=== PATIENT | female | born 1970 | race Asian ===

== ENCOUNTER 2024-07-14 06:21 | Inpatient (IN) | payer MEDICAID, OTHER ==
[~2024-07-14] VITALS: Ht 152.4 cm; Wt 45.5 kg
[2024-07-14] VITALS (7 sets, daily range): BP systolic 124–125; BP diastolic 74–85; PULSE 65–88; RESP 14–18; TEMP 97.5–98.3; O2SAT 95–100
[2024-07-14 08:16] LABS: Chloride 105 mmol/L (98-107); Sodium 140 mmol/L (136-145)
[2024-07-14 08:17] LABS: Anion Gap 8 (5-15); Calcium 9.7 mg/dL (8.7-10.4); Carbon Dioxide 27 mmol/L (20-31)
[2024-07-14 08:20] LABS: Potassium 3.3 mmol/L (3.5-5.1)
[2024-07-14 08:22] LABS: BUN/Creatinine Ratio 23.4 (10.0-20.0); Blood Urea Nitrogen 15 mg/dL (9-23); Glucose 98 mg/dL (74-106)
[2024-07-14 08:38] LABS: Basophils # (auto) 0.1 10 ^3/uL (0-0.2); Basophils % (auto) 0.8 % (0.0-2.0); Eosinophils # (auto) 0.2 10 ^3/uL (0-0.8); Eosinophils % (auto) 3.1 % (0.0-7.0); Hematocrit 35.1 % (36.0-46.0); Hemoglobin 11.5 g/dL (12.2-16.2); Lymphocytes # (auto) 1.1 10 ^3/uL (0.4-5.4); Lymphocytes % (auto) 16.4 % (10.0-50.0); Mean Corpuscular Hemoglobin 26.2 pg (28.0-32.0); Mean Corpuscular Hgb Conc. 32.7 g/dL (32.0-36.0); Mean Corpuscular Volume 80.2 fL (80.0-100.0); Monocytes # (auto) 0.4 10 ^3/uL (0-1.3); Monocytes % (auto) 6.4 % (0.0-12.0); Neutrophils # (auto) 5.1 10 ^3/uL (1.6-8.6); Neutrophils % (auto) 73.3 % (37.0-80.0); Platelet Count (auto) 555 10^3/uL (140-450); Red Blood Cells 4.37 10^6/uL (4.0-5.20); White Blood Cell 6.9 10^3/uL (4.4-10.8)
--- NOTE | 2024-07-14 09:16 | ED.PDOC ---
GI ASSESSMENT HPI Comments 53Y F presents to ED with chief complaint abd pain and rectal bleeding x1.5yrs. Pt states pain occurs after eating and she becomes distended. Pt describes stool as sticky, tacky, and containing sticks and seed-like substance inside. Per pt, she has a bowel movement 5-6x per hour and she is unable to urinate or produce flatulence unless she has defecated first. Pt states all her symptoms began after taking probiotics last year. No other symptoms/history reported. Pt has never had a colonoscopy procedure. Chief Complaint: Abdominal Pain Time Seen by MD: 08:50 Primary Care Provider: DENIES Reviewed Notes: Nurses Notes, Medications, Allergies Allergies: Coded Allergies: NO KNOWN ALLERGIES (Unverified , 02/04/20) Information Source: Patient Mode of Arrival: Ambulatory Timing: Months Duration: Intermittent Prehospital treatment: None Quality: Aching Vomitus: None Stool: Other Severity: Mild Recent: None Recent Hx of: None Pain Location: Diffuse Modifying Factors: Nothing Associated sign and symptoms: Abdominal Pain, Other Past Medical History PAST MEDICAL HISTORY: Denies Surgical History: Denies all surgeries 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 ASSISTANT Hx Family History Family History: Reviewed,noncontributory to illness Social History Smoker: Non-Smoker Alcohol: Denies ETOH Use Drugs: Denies Drug Use Lives In: Home Constitutional: denies: chills, diaphoresis, fatigue, fever, malaise, sweats, weakness, others EENTM: denies: blurred vision, double vision, ear bleeding, ear discharge, ear drainage, ear pain, ear ringing, eye pain, eye redness, hearing loss, mouth pain, mouth swelling, nasal discharge, nose bleeding, nose congestion, nose pain, photophobia, tearing, throat pain, throat swelling, voice changes, others Respiratory: denies: cough, hemoptysis, orthopnea, SOB at rest, shortness of breath, SOB with excertion, stridor, wheezing, others Cardiovascular: denies: chest pain, dizzy spells, diaphoresis, Dyspnea on exertion, edema, irregular heart beat, left arm pain, lightheadedness, palpitations, PND, syncope, others Gastrointestinal: reports: abdomen distended, abdominal pain, rectal bleeding, rectal pain; denies: blood streaked bowels, constipated, diarrhea, dysphagia, difficulty swallowing, hematemesis, melena, nausea, poor appetite, poor fluid intake, vomiting, others Genitourinary: denies: abnormal vagina bleeding, burning, dyspareunia, dysuria, flank pain, frequency, hematuria, incontinence, pain, , vagina discharge, urgency, others Neurological: denies: dizziness, fainting, headache, left sided numbness, left sided weakness, numbness, paresthesia, pre-existing deficit, right sided numbness, right sided weakness, seizure, speech problems, tingling, tremors, weakness, others Musculoskeletal: denies: back pain, gout, joint pain, joint swelling, muscle pain, muscle stiffness, neck pain, others Integumetry: denies: bruises, change in color, change in hair/nails, dryness, laceration, lesions, lumps, rash, wounds, others Allergic/Immunocompromised: denies: Difficulty Healing, Frequent Infections, Hives, Itching, others Hematologic/Lymphatic: denies: anemia, blood clots, easy bleeding, easy bruising, swollen glands, others Endocrine: denies: excessive hunger, excessive sweating, excessive thirst, excessive urination, flushing, intolerance to cold, intolerance to heat, unexplained weight gain, unexplained weight loss, others Psychiatric: denies: anxiety, bipolar disorder, depression, hopeless, panic disorder, schizophrenia, sleepless, suicidal, others All Other Systems: Reviewed and Negative Physical Exam General Appearance: No Apparent Distress, Normal HEENT: Normal ENT Inspection, Pharynx Normal, TMs Normal Neck: Full Range of Motion, Non-Tender, Normal, Normal Inspection Respiratory: Chest Non-Tender, Lungs Clear, No Accessory Muscle Use, No Respiratory Distress, Normal Breath Sounds Cardiovascular: No Edema, No JVD, No Murmur, No Gallop, Normal Peripheral Pulses, Regular Rate/Rhythm Breast Exam: Deferred Gastrointestinal: No Organomegaly, Non Tender, No Pulsatile Mass, Normal Bowel Sounds, Soft Genitalia: Deferred Pelvic: Deferred Rectal: Deferred Extremities: No calf tenderness, Normal capillary refill, Normal inspection, Normal range of motion, Non-tender, No pedal edema Musculoskeletal : Apperance: Normal Neurologic: Alert, laboratory sample carrier II-XII nml as Tested, No Motor Deficits, Normal Affect, Normal Mood, No Sensory Deficits Cerebellar Function: NOT DONE Reflexes: NOT DONE Skin: Dry, Normal Color, Warm Lymphatic: No Adenopathy Was a procedure done? Was a procedure done?: No GI differential Dx Differential Diagnosis: Diverticular disease, Gastritis/PUD, Gastroenteritis, UTI, Electrolyte Imbalance, Bacterial, Parasitic, Viral X-Ray, Labs, Meds, VS Vital Signs Date Time Temp Pulse Resp B/P (MAP) Pulse Ox O2 Delivery O2 Flow Rate FiO2 07/14/24 10:16 98.0 76 16 137/83 (101) 95 98.0 07/14/24 07:39 97.6 85 16 127/87 (100) 95 97.6 07/14/24 07:39 85 16 95 Room Air* 0 21 07/14/24 06:35 97.9 85 18 127/99 (108) 99 97.9 Lab Test 07/14/24 07:40 Range/Units White Blood Count 6.9 4.4-10.8 10^3/uL Red Blood Count 4.37 4.0-5.20 10^6/uL Hemoglobin 11.5 L 12.2-16.2 g/dL Hematocrit 35.1 L 36.0-46.0 % Mean Corpuscular Volume 80.2 80.0-100.0 fL Mean Corpuscular Hemoglobin 26.2 L 28.0-32.0 pg Mean Corpuscular Hemoglobin Concent 32.7 32.0-36.0 g/dL Red Cell Distribution Width 16.0 H 11.8-14.3 % Platelet Count 555 H 140-450 10^3/uL Mean Platelet Volume 7.1 6.9-10.8 fL Neutrophils (%) (Auto) 73.3 37.0-80.0 % Lymphocytes (%) (Auto) 16.4 10.0-50.0 % Monocytes (%) (Auto) 6.4 0.0-12.0 % Eosinophils (%) (Auto) 3.1 0.0-7.0 % Basophils (%) (Auto) 0.8 0.0-2.0 % Neutrophils # (Auto) 5.1 1.6-8.6 10 ^3/uL Lymphocytes # (Auto) 1.1 0.4-5.4 10 ^3/uL Monocytes # (Auto) 0.4 0-1.3 10 ^3/uL Eosinophils # (Auto) 0.2 0-0.8 10 ^3/uL Basophils # (Auto) 0.1 0-0.2 10 ^3/uL Nucleated Red Blood Cells 0.0 % Sodium Level 140 136-145 mmol/L Potassium Level 3.3 L 3.5-5.1 mmol/L Chloride Level 105 98-107 mmol/L Carbon Dioxide Level 27 20-31 mmol/L Anion Gap 8 5-15 Blood Urea Nitrogen 15 9-23 mg/dL Creatinine 0.64 0.550-1.02 mg/dL Glomerular Filtration Rate Calc 104 >90 mL/min BUN/Creatinine Ratio 23.4 H 10.0-20.0 Serum Glucose 98 74-106 mg/dL Calcium Level 9.7 8.7-10.4 mg/dL Time of 1ST Reevaluation: 09:10 Reevaluation 1ST: Unchanged Patient Education/Counseling: Diagnosis, Treatment Family Education/Counseling: No Family Present Departure 1 Departure Time of Disposition: 11:01 (Patient presented with abdominal pain that was concerning for possible appendicits, gastritis, cholecystitis, colitis, gastroenteritis, sbo, or orther possible surgical emergency. Data: 1. I ordered and reviewed the result of at least 3 labs including a CBC, BMP, and Urinalysis. 2. I independently interpreted the following tests: CT Abdoment and Pelvis is c oncerning for malignancy .Risk:This patient has a high risk of morbidity due to further diagnostic testing or treatment and may suffer from an acute abdominal process disorder. Workup reveals concern for malignancy and patient should be admitted for further workup. and possible expert consultation. ) Impression: Primary Impression: Intractable abdominal pain Additional Impressions: Rectal mass Constipation Qualified Codes: K59.00 - Constipation, unspecified Black stool Disposition: ADMITTED INPATIENT Admit to: Med Surg Condition: Serious Critical Care Note Critical Care Time?: Yes Critical care comment: Intractable abdominal pain and concern for malignancy Authorized and Performed by: Bharati Zaidi MD Total critical care time: Approximately 38 minutes Due to a high probability of clinically significant, life threatening deterioration, the patient required my highest level of preparedness to intervene emergently and I personally spent this critical care time directly and personally managing the patient. This critical care time included obtaining a history; examining the patient; pulse oximetry; ordering and review of studies; arranging urgent treatment with development of a management plan; evaluation of patient's response to treatment; frequent reassessment; and, discussions with other providers. This critical care time was performed to assess and manage the high probability of imminent, life-threatening deterioration that could result in multi-organ failure. It was exclusive of separately billable procedures and treating other patients and teaching time. Please see my other sections and the rest of the note for further information on patient assessment and treatment. Stability Stability form required: No Heart Score Heart Score: Heart Score Response (Comments) Value History N/A 0 EKG N/A 0 Age N/A 0 Risk Factors N/A 0 Troponin N/A 0 Total 0 I personally scribed for BHARATI ZAIDI MD ([email or web address]) on 07/14/24 at 09:16. Electronically submitted by Zenaida Lockhart ([email or web address]). BHARATI ZAIDI MD Jul 14, 2024 09:16
[2024-07-14] MEDS: IOHEXOL 300 MG/ML 100ML BOTTLE IJ ONE (10:12)
--- NOTE | 2024-07-14 10:51 | DVH ---
CT ABDOMEN AND PELVIS WITHOUT CONTRAST CLINICAL HISTORY: abdominal pain, gi bleed TECHNIQUE: Multiple contiguous axial images of the abdomen and pelvis without intravenous contrast. T he images were reformatted degenerate coronal and sagittal reconstructions. All CT scans at this medical facility are performed using dose modulation techniques as appropriate t o a performed exam including the following:Automated exposure control was utilized; adjustment of the MA and/or KV according to patient size; and use of iterative reconstruction technique. Radiation Dose Information: CT Dose: CTDI volume is 5 mGy. Dose-length product is 267 mGy*cm Comparison: None FINDINGS: Evaluation of the abdomen and pelvis is limited without intravenous contrast. The gallbladder appears within normal limits without evidence of gallstones. The common bile duct mil dly dilated measuring 7 mm. There is dilated pancreatic duct measuring 5 mm. The liver, pancreas, kidneys, adrenal glands, and spleen appear within normal limits. There is no gross evidence of abdominal lymphadenopathy. There is no free fluid or free air. The stomach grossly appears unremarkable. The small bowel loops demonstrate normal caliber. There is large amount of stool seen in the colon. The rectum is poorly distended with thickened irregular braeden earing anthony. There are few small lymph nodes in the mesorectal fat measuring up to 7 mm. The appendi x is not seen in the right lower quadrant abdomen. There are no secondary signs of acute appendicitis . The abdominal aorta and IVC appear within normal limits. The bladder appears unremarkable for the degree of distention. Uterus grossly appears within normal l imits.. There is no gross evidence of a pelvic mass. There is no free fluid collection. Lung bases are clear. There is no acute osseous abnormality. IMPRESSION: 1. There is large amount of stool seen within the colon. The rectum is poorly distended with thickene d irregular appearing anthony. Rectal malignancy is not excluded. 2. There are few nonspecific small lymph nodes in the mesorectal fat measuring up to 7 mm. 3. The gallbladder appears within normal limits without evidence of cholelithiasis. There is pancreat ic and mild biliary ductal dilatation. Clinical correlation and further evaluation with MRCP is recom mended. Critical findings discussed with Dr. Zaidi by Dr. Nayan Wilkes via phone on 07/14/2024 10:49 AM. HS:Y
[2024-07-14 11:38] LABS: Urine Bacteria None Seen /hpf (None Seen)
[2024-07-14 11:52] LABS: Urine Blood Negative /uL (Negative); Urine Clarity Clear (Clear); Urine Color Yellow (Yellow); Urine Mucus FEW (None Seen); Urine Protein, UAD TRACE (Negative); Urine Squamous Epithelial Cell None Seen /hpf (<5); Urine Urobilinogen Normal (Negative); Urine WBC < 1 /HPF (0-5); Urine pH 6.5 (5.0-9.0)
[2024-07-14 12:00] LABS: Urine Specific Gravity > 1.050 (1.001-1.035)
[2024-07-14] MEDS ORDERED: ONDANSETRON HCL 4 MG/2 ML VIAL IV PRN (13:15)
[2024-07-14] MEDS ORDERED: ACETAMINOPHEN 325 MG TAB PO PRN (13:15)
--- NOTE | 2024-07-14 13:58 | DVHHP2 ---
History of Present Illness Reason for Visit: Abdominal Pain History of Present Illness Franchesca Allen is a 53-year-old female who denies any past medical history that came in for abdominal pain that came in for abdominal pain. Patient states that about 1 year ago she noticed some blood in her stool. She states she did not follow up a provider at the time due to financial difficulty. In April/May she was under a lot of stress and her bowels were all messed up. October of 2023 she began taking probiotics and that is when her problems worsened according to the patient. She states after that she began having rectal and abdominal pain. She started noticing sticks and rocks in her stool. She came to the hospital today due to constipation and urinary retention. She states she is not able to urinate unless she has a bowel movement. Past Surgical History: None Smoke: Quit (1 year ago) ALCOHOL: occassional Drugs: Marijuana (quit 1 month ago) Lives: with Family Domestic Violence: Neg Review of Systems Constitutional: No: Fever, Chills, Sweats, Weakness, Malaise, Other Eyes: No: Pain, Vision change, Conjunctivae inflammation, Eyelid inflammation, Other, Redness ENT: No: Ear pain, Ear discharge, Nose pain, Nose discharge, Nose congestion, Mouth pain, Mouth swelling, Throat pain, Throat swelling, Other Respiratory: No: Cough, Dry, Shortness of breath, SOB with excertion, Wheezing, Hemoptysis, Pleuritic Pain, Sputum, Wheezing, Other Cardiovascular: No: Chest Pain, Palpitations, Orthopnea, Paroxysmal Noc. Dyspnea, Edema, Lt Headedness, Other Gastrointestinal: Abdominal Pain, Constipation, Other (rectal pain); No: Nausea, Vomiting, Diarrhea, Melena, Hematochezia Genitourinary: No Dysuria, No Frequency, No Incontinence, No Hematuria, No Retention, No Other Musculoskeletal: No: other, neck pain, shoulder pain, arm pain, back pain, hand pain, leg pain, foot pain Skin: No: Rash, Lesions, Jaundice, Bruising, Other Neurological: No: Weakness, Numbness, Incoordination, Change in speech, Confusion, Seizures, Other Allergies: Coded Allergies: NO KNOWN ALLERGIES (Unverified , 02/04/20) Exam Vital Signs Vital Signs Date Time Temp Pulse Resp B/P (MAP) Pulse Ox O2 Delivery O2 Flow Rate FiO2 4/2/25 10:16 98.0 76 16 137/83 (101) 95 98.0 07/14/24 07:39 Room Air* 0 21 General Appearance: Alert, Oriented X3, Cooperative, mild distress HEENT: Atraumatic, PERRLA, Mucous membr. moist/pink Respiratory: Clear to auscultation, Normal air movement Cardiovascular: Regular rate, Normal S1, Normal S2 Abdominal: Normal bowel sounds, Other (suprapubic and rectal pain) Extremities: No clubbing, No cyanosis, No edema, Normal pulses, No tenderness/swelling Skin: No rashes, No breakdown Neuro: Normal gait, Normal speech Psych/Mental Status: Mental status NL, Mood NL Labs/Xrays Labs Test 07/14/24 11:00 07/14/24 07:40 Range/Units Urine Color Yellow Yellow Urine Clarity Clear Clear Urine pH 6.5 5.0-9.0 Urine Specific [place] > 1.050 H 1.001-1.035 Urine Protein Trace H Negative Urine Ketones Negative Negative Urine Blood Negative Negative /uL Urine Nitrite Negative Negative Urine Bilirubin Negative Negative Urine Urobilinogen Normal Negative mg/dL Urine Leukocyte Esterase Negative Negative /uL Urine RBC 1 0 - 4 /hpf Urine Microscopic WBC < 1 0-5 /HPF Urine Squamous Epithelial Cells None seen <5 /hpf Urine Bacteria None seen None Seen /hpf Urine Mucus Few None Seen Urine Glucose Normal Normal mg/dL White Blood Count 6.9 4.4-10.8 10^3/uL Red Blood Count 4.37 4.0-5.20 10^6/uL Hemoglobin 11.5 L 12.2-16.2 g/dL Hematocrit 35.1 L 36.0-46.0 % Mean Corpuscular Volume 80.2 80.0-100.0 fL Mean Corpuscular Hemoglobin 26.2 L 28.0-32.0 pg Mean Corpuscular Hemoglobin Concent 32.7 32.0-36.0 g/dL Red Cell Distribution Width 16.0 H 11.8-14.3 % Platelet Count 555 H 140-450 10^3/uL Mean Platelet Volume 7.1 6.9-10.8 fL Neutrophils (%) (Auto) 73.3 37.0-80.0 % Lymphocytes (%) (Auto) 16.4 10.0-50.0 % Monocytes (%) (Auto) 6.4 0.0-12.0 % Eosinophils (%) (Auto) 3.1 0.0-7.0 % Basophils (%) (Auto) 0.8 0.0-2.0 % Neutrophils # (Auto) 5.1 1.6-8.6 10 ^3/uL Lymphocytes # (Auto) 1.1 0.4-5.4 10 ^3/uL Monocytes # (Auto) 0.4 0-1.3 10 ^3/uL Eosinophils # (Auto) 0.2 0-0.8 10 ^3/uL Basophils # (Auto) 0.1 0-0.2 10 ^3/uL Nucleated Red Blood Cells 0.0 % Sodium Level 140 136-145 mmol/L Potassium Level 3.3 L 3.5-5.1 mmol/L Chloride Level 105 98-107 mmol/L Carbon Dioxide Level 27 20-31 mmol/L Anion Gap 8 5-15 Blood Urea Nitrogen 15 9-23 mg/dL Creatinine 0.64 0.550-1.02 mg/dL Glomerular Filtration Rate Calc 104 >90 mL/min BUN/Creatinine Ratio 23.4 H 10.0-20.0 Serum Glucose 98 74-106 mg/dL Calcium Level 9.7 8.7-10.4 mg/dL CT ABDOMEN AND PELVIS WITHOUT CONTRAST FINDINGS: Evaluation of the abdomen and pelvis is limited without intravenous contrast. The gallbladder appears within normal limits without evidence of gallstones. The common bile duct mildly dilated measuring 7 mm. There is dilated pancreatic duct measuring 5 mm. The liver, pancreas, kidneys, adrenal glands, and spleen appear within normal limits. There is no gross evidence of abdominal lymphadenopathy. There is no free fluid or free air. The stomach grossly appears unremarkable. The small bowel loops demonstrate normal caliber. There is large amount of stool seen in the colon. The rectum is poorly distended with thickened irregular appearing anthony. There are few small lymph nodes in the mesorectal fat measuring up to 7 mm. The appendix is not seen in the right lower quadrant abdomen. There are no secondary signs of acute appendicitis. The abdominal aorta and IVC appear within normal limits. The bladder appears unremarkable for the degree of distention. Uterus grossly appears within normal limits.. There is no gross evidence of a pelvic mass. There is no free fluid collection. Lung bases are clear. There is no acute osseous abnormality. IMPRESSION: 1. There is large amount of stool seen within the colon. The rectum is poorly distended with thickened irregular appearing anthony. Rectal malignancy is not excluded. 2. There are few nonspecific small lymph nodes in the mesorectal fat measuring up to 7 mm. 3. The gallbladder appears within normal limits without evidence of cholelithiasis. There is pancreatic and mild biliary ductal dilatation. Clinical correlation and further evaluation with MRCP is recommended. Assessment/Plan Assessment/Plan Assessment: Constipation, Possible colon cancer, Urinary retention, Plan: Admit to Med-Surg, GI consult, Glycerin suppository, Clear liquid diet, IV hydration, Bladder scan patient, CEA, Consider urology consult if patient has persistent urinary retention, Plan discussed with: Patient Date of Service: Jul 14, 2024 Billing Provider: MIGUEL ANGEL SCHAFER Common Visit Codes: [id number] INP/OBS CARE (MOD) MIGUEL ANGEL SCHAFER Jul 14, 2024 13:58
[2024-07-14] MEDS: SODIUM CHLORIDE 0.9% 1,000 ML IV ONE (14:00)
[2024-07-14] MEDS: SODIUM CHLOR 0.9% PF (SALINE LOCK) 10ML VIAL/SYR IV SCH (14:29)
[2024-07-14] MEDS: GLYCERIN ADULT RECTAL SUPP PR ONE (18:50)
[2024-07-15 01:00] VITALS: BP 114/69; PULSE 77; RESP 16; TEMP 98; O2SAT 100
[2024-07-15 05:00] VITALS: BP 103/73; PULSE 77; RESP 17; TEMP 98.5; O2SAT 97
[2024-07-15 06:39] LABS: Eosinophils # (auto) 0.4 10 ^3/uL (0-0.8); Hemoglobin 10.6 g/dL (12.2-16.2); Lymphocytes # (auto) 1.1 10 ^3/uL (0.4-5.4); Monocytes # (auto) 0.5 10 ^3/uL (0-1.3); Neutrophils # (auto) 4.8 10 ^3/uL (1.6-8.6)
[2024-07-15 06:42] LABS: Basophils # (auto) 0 10 ^3/uL (0-0.2); Basophils % (auto) 0.6 % (0.0-2.0); Eosinophils % (auto) 5.4 % (0.0-7.0); Hematocrit 32.8 % (36.0-46.0); Lymphocytes % (auto) 16.6 % (10.0-50.0); Mean Corpuscular Hemoglobin 25.9 pg (28.0-32.0); Mean Corpuscular Hgb Conc. 32.4 g/dL (32.0-36.0); Mean Corpuscular Volume 79.8 fL (80.0-100.0); Monocytes % (auto) 7.4 % (0.0-12.0); Nucleated Red Blood Cells % 0.1 %; Platelet Count (auto) 470 10^3/uL (140-450); Red Blood Cells 4.11 10^6/uL (4.0-5.20); White Blood Cell 6.8 10^3/uL (4.4-10.8)
[2024-07-15 06:52] LABS: Albumin 3.8 g/dL (3.2-4.8); Alkaline Phosphatase 82 U/L (46-116); Anion Gap 7 (5-15); BUN/Creatinine Ratio 10.7 (10.0-20.0); Calcium 9.1 mg/dL (8.7-10.4); Carbon Dioxide 25 mmol/L (20-31); Glucose 92 mg/dL (74-106); Potassium 3.7 mmol/L (3.5-5.1); Sodium 141 mmol/L (136-145); Total Protein 6.2 g/dL (5.7-8.2)
[2024-07-15 06:53] LABS: Bilirubin, Total 0.4 mg/dL (0.2-1.0)
[2024-07-15 06:55] LABS: Alanine Aminotransferase < 9 U/L (7-40); Aspartate Aminotransferase 12 U/L (13-40); Blood Urea Nitrogen 6 mg/dL (9-23); Chloride 109 mmol/L (98-107)
[2024-07-15 08:42] VITALS: BP 102/68; PULSE 74; RESP 15; TEMP 98.6; O2SAT 96
[2024-07-15] MEDS: HYDROcodone-ACET 5/325MG TAB PO PRN (08:55)
[2024-07-15 13:00] VITALS: BP 106/69; PULSE 71; RESP 14; TEMP 98.1; O2SAT 98
--- NOTE | 2024-07-15 15:25 | DVHPN2 ---
Subjective I am assuming the care of the patient from today onwards was under the care of the hospitalist team. Fluid-filled signed off obtained. 53-year-old female with significant history of constipation for almost a yearwith loss of weight around 10 lb, pencil shaped stools accompanied by rocks and sticks in the stool presented to the hospital with abdominal pain rectal pain and constipation found to have rectal wall thickening suspected rectal cancer. Changes from previous H/P or p: No Changes Eyes: No Pain, No Vision change, No Conjunctivae inflammation, No Eyelid inflammation, No Other, No Redness ENT: No Ear pain, No Ear discharge, No Nose pain, No Nose discharge, No Nose congestion, No Mouth pain, No Mouth swelling, No Throat pain, No Throat swelling, No Other Cardiovascular: No Chest Pain, No Palpitations, No Orthopnea, No Paroxysmal Noc. Dyspnea, No Edema, No Lt Headedness, No Other Respiratory: No Cough, No Dry, No Shortness of breath, No SOB with excertion, No Wheezing, No Hemoptysis, No Pleuritic Pain, No Sputum, No Other Gastrointestinal: No Nausea, No Vomiting; Abdominal Pain; No Diarrhea; C onstipation; No Melena, No Hematochezia; Other (rectal pain) Genitourinary: No Dysuria, No Frequency, No Incontinence, No Hematuria, No Retention, No Other Musculoskeletal: No other, No neck pain, No shoulder pain, No arm pain, No back pain, No hand pain, No leg pain, No foot pain Skin: No Rash, No Lesions, No Jaundice, No Bruising, No Other Objective Vitals Vital Signs Date Time Temp Pulse Resp B/P (MAP) Pulse Ox O2 Delivery O2 Flow Rate FiO2 07/15/24 13:00 98.1 71 14 106/69 (81) 98 98.1 07/15/24 08:00 Room Air* 0 21 Intake/Output Intake and Output 07/15/24 07:00 Intake Total 1580 ml Balance 1580 ml Intake Oral 580 ml IV Total 1000 ml # Voids 4 # Bowel Movements 12 Exam HEENT pupils are reactive Neck is supple CV is S1-S2 regular rate and rhythm Respiratory bilateral clear GI positive bowel sounds soft nondistended nontender no guarding no rigidity Extremity 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7-10.4) Total Protein 6.2 g/dL (5.7-8.2) LFT Test 07/15/24 05:53 Alanine Aminotransferase (ALT) < 9 U/L (7-40) Alkaline Phosphatase 82 U/L (46-116) Aspartate Amino Transferase (AST) 12 U/L (13-40) L Total Bilirubin 0.4 mg/dL (0.2-1.0) Urinalysis Test 07/14/24 11:00 Urine Color Yellow (Yellow) Urine Clarity Clear (Clear) Urine pH 6.5 (5.0-9.0) Urine Specific [place] > 1.050 (1.001-1.035) Urine Protein Trace (Negative) H Urine Ketones Negative (Negative) Urine Blood Negative /uL (Negative) Urine Nitrite Negative (Negative) Urine Bilirubin Negative (Negative) Urine Urobilinogen Normal mg/dL (Negative) Urine Leukocyte Esterase Negative /uL (Negative) Urine RBC 1 /hpf (0 - 4) Urine Microscopic WBC < 1 /HPF (0-5) Urine Squamous Epithelial Cells None seen /hpf (<5) Urine Bacteria None seen /hpf (None Seen) Urine Mucus Few (None Seen) Urine Glucose Normal mg/dL (Normal) Assessment/Plan Assessment/Plan 83-year-old female with a known history of constipation on and off for almost a year presented to the hospital with rectal pain, constipation found to have 1. Rectal wall thickening highly suspicious for rectal cancer 2. Constipation with a pencil shaped stools 3. Loss of weight about 10 lb last 6 months -GI consultation, patient may need colonoscopy or sigmoidoscopy. -bowel regimen. Plan discussed with: Patient My Orders Orders - CHARITO MOLINA MD Procedure Category Date Status Time Lactulose Oral PHA 07/15/24 In Process 18:00 Problem List: (1) Constipation Date of Service: Jul 15, 2024 Billing Provider: CHARITO MOLINA MD Common Visit Codes: [id number] INP/OBS CARE(MOD) CHARITO MOLINA MD Jul 15, 2024 15:25
[2024-07-15 17:00] VITALS: BP 113/79; PULSE 69; RESP 19; TEMP 97.9; O2SAT 98
[2024-07-15] MEDS: LACTULOSE 20Gm/30ML SOLN PO SCH (17:41)
--- NOTE | 2024-07-15 18:27 | DVHINCON2 ---
Date of service: Jul 15, 2024 Referring Physician Vaishali Sahu Reason for Consultation Constipation History of Present Illness Franchesca Allen is a 53-year-old female who denies any past medical history that came in for abdominal pain. Patient states that about 1 year ago she noticed some blood in her stool. She states she did not follow up a provider at the time due to financial difficulty. In April/May of 2023 she was under a lot of stress and her bowels were all messed up. October of 2023 she began taking probiotics and that is when her problems worsened according to the patient. She states after that she began having rectal and abdominal pain. She started noticing sticks and rocks in her stool. She came to the hospital today due to constipation and urinary retention. She states she is not able to urinate unless she has a bowel movement. Past Medical History Ex smoker ; quit Marijuana a month ago Past Surgical History termination Family History: Cardiovascular disease G8 MOTHER G8 FATHER Hypertension G8 MOTHER Allergies: Coded Allergies: NO KNOWN ALLERGIES (Unverified , 02/04/20) Current Medications Current Medications Medications (Trade) Dose Ordered Sig/Hodan Route PRN Reason Start Time Stop Time Status Last Admin Lactulose 30 ml Q6HR PO 07/15/24 18:00 07/15/24 17:41 Vital Signs Vital Signs Date Time Temp Pulse Resp B/P (MAP) Pulse Ox O2 Delivery O2 Flow Rate FiO2 07/15/24 17:00 97.9 69 19 113/79 (90) 98 97.9 07/15/24 08:00 Room Air* 0 21 Physical Exam General Appearance: Alert, Oriented X3, Cooperative, mild distress HEENT: Atraumatic, PERRLA, Mucous membr. moist/pink Respiratory: Clear to auscultation, Normal air movement Cardiovascular: Regular rate, Normal S1, Normal S2 Abdominal: Normal bowel sounds, Other (suprapubic and rectal pain) Extremities: No clubbing, No cyanosis, No edema, Normal pulses, No tenderness/swelling Skin: No rashes, No breakdown Neuro: Normal gait, Normal speech Psych/Mental Status: Mental status NL, Mood NL Labs/Diagnostic Data Labs Test 07/15/24 05:53 07/14/24 11:00 07/14/24 07:40 Range/Units White Blood Count 6.8 4.4-10.8 10^3/uL Red Blood Count 4.11 4.0-5.20 10^6/uL Hemoglobin 10.6 L 12.2-16.2 g/dL Hematocrit 32.8 L 36.0-46.0 % Mean Corpuscular Volume 79.8 L 80.0-100.0 fL Mean Corpuscular Hemoglobin 25.9 L 28.0-32.0 pg Mean Corpuscular Hemoglobin Concent 32.4 32.0-36.0 g/dL Red Cell Distribution Width 16.0 H 11.8-14.3 % Platelet Count 470 H 140-450 10^3/uL Mean Platelet Volume 6.7 L 6.9-10.8 fL Neutrophils (%) (Auto) 70.0 37.0-80.0 % Lymphocytes (%) (Auto) 16.6 10.0-50.0 % Monocytes (%) (Auto) 7.4 0.0-12.0 % Eosinophils (%) (Auto) 5.4 0.0-7.0 % Basophils (%) (Auto) 0.6 0.0-2.0 % Neutrophils # (Auto) 4.8 1.6-8.6 10 ^3/uL Lymphocytes # (Auto) 1.1 0.4-5.4 10 ^3/uL Monocytes # (Auto) 0.5 0-1.3 10 ^3/uL Eosinophils # (Auto) 0.4 0-0.8 10 ^3/uL Basophils # (Auto) 0 0-0.2 10 ^3/uL Nucleated Red Blood Cells 0.1 % Sodium Level 141 136-145 mmol/L Potassium Level 3.7 3.5-5.1 mmol/L Chloride Level 109 H 98-107 mmol/L Carbon Dioxide Level 25 20-31 mmol/L Anion Gap 7 5-15 Blood Urea Nitrogen 6 L 9-23 mg/dL Creatinine 0.56 0.550-1.02 mg/dL Glomerular Filtration Rate Calc 108 >90 mL/min BUN/Creatinine Ratio 10.7 10.0-20.0 Serum Glucose 92 74-106 mg/dL Calcium Level 9.1 8.7-10.4 mg/dL Total Bilirubin 0.4 0.2-1.0 mg/dL Aspartate Amino Transferase (AST) 12 L 13-40 U/L Alanine Aminotransferase (ALT) < 9 7-40 U/L Alkaline Phosphatase 82 46-116 U/L Total Protein 6.2 5.7-8.2 g/dL Albumin 3.8 3.2-4.8 g/dL Urine Color Yellow Yellow Urine Clarity Clear Clear Urine pH 6.5 5.0-9.0 Urine Specific [place] > 1.050 H 1.001-1.035 Urine Protein Trace H Negative Urine Ketones Negative Negative Urine Blood Negative Negative /uL Urine Nitrite Negative Negative Urine Bilirubin Negative Negative Urine Urobilinogen Normal Negative mg/dL Urine Leukocyte Esterase Negative Negative /uL Urine RBC 1 0 - 4 /hpf Urine Microscopic WBC < 1 0-5 /HPF Urine Squamous Epithelial Cells None seen <5 /hpf Urine Bacteria None seen None Seen /hpf Urine Mucus Few None Seen Urine Glucose Normal Normal mg/dL Carcinoembryonic Antigen 1.68 <=5.0 ng/mL CT SCAN ABD PELVIS IMPRESSION: 1. There is large amount of stool seen within the colon. The rectum is poorly distended with thickened irregular appearing anthony. Rectal malignancy is not excluded. 2. There are few nonspecific small lymph nodes in the mesorectal fat measuring up to 7 mm. 3. The gallbladder appears within normal limits without evidence of cholelithiasis. There is pancreatic and mild biliary ductal dilatation. Clinical correlation and further evaluation with MRCP is recommended. Problems(with codes): (1) Constipation (2) Intractable abdominal pain (3) Rectal mass (4) Anemia Plan/Recommendation Plan Clear liquid diet Patient will give her a bottle of magnesium citrate Tap water enema in the morning Possible sigmoidoscopy with rectal biopsies in a.m. If that is nondiagnostic then a full bowel prep and a colonoscopy to follow up Plan discussed with: Patient, Other MICHELLE KENNEY MD Jul 15, 2024 18:27
[2024-07-15] MEDS: POLYETHYLENE GLYCOL 17 GM PWDR PO SCH (18:44)
[2024-07-15 21:00] VITALS: BP 101/73; PULSE 72; RESP 18; TEMP 98.2; O2SAT 96
[2024-07-16] VITALS (9 sets, daily range): BP systolic 101–119; BP diastolic 63–78; PULSE 64–86; RESP 12–18; TEMP 97.9–98.2; O2SAT 96–100
[2024-07-16] MEDS: DOCUSATE SOD 100 MG CAP PO PRN (00:30)
[2024-07-16] MEDS: MAGNESIUM CITRATE SOLUTION 300 ML BTL PO ONE (08:00)
[2024-07-16] MEDS ORDERED: NALOXONE HCL 0.4 MG/ML VIAL ONE (08:36)
[2024-07-16] MEDS ORDERED: FLUMAZENIL 0.1 MG/ML INJ 10ML MDV IV ONE (08:36)
[2024-07-16] MEDS ORDERED: SODIUM CHLORIDE LOCK 10 ML ONE (08:36)
[2024-07-16] MEDS ORDERED: SIMETHICONE 40 MG/0.6 ML ORAL DROP ONE (08:37)
[2024-07-16] MEDS ORDERED: LIDOCAINE HCL 5 % TOP OINT 35 GM TOP ONE (09:15)
[2024-07-16] MEDS: FLEET ENEMA(ADULT) 135 ML PR ONE (11:35)
[2024-07-16] MEDS ORDERED: LIDOCAINE 2% JELLY 11ml (GLYDO) ONE (12:46)
[2024-07-16] MEDS: fentaNYL CITRATE 100 MCG/2 ML VL ONE (12:57)
[2024-07-16] MEDS: MIDAZOLAM HCL 5 MG/ML-1ML VIAL ONE (12:57)
[2024-07-16] MEDS: diphenhdrAMINE HCL 50 MG/1 ML VL ONE (12:57)
--- NOTE | 2024-07-16 13:08 | DVHOP2 ---
Operative Report DATE OF OPERATION: 07/16/24 PROCEDURE: Flexible sigmoidoscopy with biopsy PREOPERATIVE INDICATION: The patient is a 53 -year-old female undergoing colonoscopy for evaluation of abnormal finding GI tract imaging suspected rectal mass constipation and change in bowel habits POSTOPERATIVE DIAGNOSES: 1. Patient had a large friable circumferential polypoid annular mass in the rectum starting at about 3 cm above the anal verge causing partial obstruction beyond which the colonoscope could not be advanced 2. Multiple biopsies were obtained and patient tolerated the procedure well PROCEDURE PERFORMED BY: Michelle Dwyer M.D. SCOPE: Olympus videocolonoscope. ASA CLASS: 2. PREOPERATIVE MEDICATIONS: Versed 2 mg, Fentanyl 50 mcg, Benadryl 50 mg PROCEDURE IN DETAIL: After obtaining an informed consent, the patient was placed on left lateral decubitus position. She was then sedated with the above medications. A rectal examination was performed that was normal. The colonoscope was then passed through the anus into the rectosigmoid. The patient Had a large friable circumferential annular polypoid mass in the rectum starting at about 3 cm above the anal verge causing almost complete obstruction I was not able to pass the colonoscope beyond this tumor mass area. Multiple biopsies were obtained. The colonoscope was then withdrawn. The patient tolerated the procedure well without difficulty. WITHDRAWAL TIME: Not applicable QUALITY OF THE PREP: [place] Bowel Prep score: Not applicable COMPLICATIONS : None SPECIMENS: Rectal mass biopsies DISPOSITION: Transfer back to the floor Stable PLAN: 1. Ice chips and clear liquids 2. Check CEA level 3. Oncology consult and surgical consult MICHELLE DWYER MD Jul 16, 2024 13:08
--- NOTE | 2024-07-16 15:56 | DVHPN2 ---
Subjective Patient is status post sigmoidoscopy ,report is pending. Changes from previous H/P or p: No Changes Eyes: No Pain, No Vision change, No Conjunctivae inflammation, No Eyelid inflammation, No Other, No Redness ENT: No Ear pain, No Ear discharge, No Nose pain, No Nose discharge, No Nose congestion, No Mouth pain, No Mouth swelling, No Throat pain, No Throat swelling, No Other Cardiovascular: No Chest Pain, No Palpitations, No Orthopnea, No Paroxysmal Noc. Dyspnea, No Edema, No Lt Headedness, No Other Respiratory: No Cough, No Dry, No Shortness of breath, No SOB with excertion, No Wheezing, No Hemoptysis, No Pleuritic Pain, No Sputum, No Other Gastrointestinal: No Nausea, No Vomiting; Abdominal Pain; No Diarrhea; C onstipation; No Melena, No Hematochezia; Other (rectal pain) Genitourinary: No Dysuria, No Frequency, No Incontinence, No Hematuria, No Retention, No Other Musculoskeletal: No other, No neck pain, No shoulder pain, No arm pain, No back pain, No hand pain, No leg pain, No foot pain Skin: No Rash, No Lesions, No Jaundice, No Bruising, No Other Objective Vitals Vital Signs Date Time Temp Pulse Resp B/P (MAP) Pulse Ox O2 Delivery O2 Flow Rate FiO2 07/16/24 13:30 97.9 70 17 107/66 (80) 99 97.9 07/16/24 13:10 Room Air 07/16/24 13:10 99 07/16/24 08:00 0 Intake/Output Intake and Output 07/16/24 07:00 Intake Total 1150 ml Balance 1150 ml Intake Oral 1150 ml # Voids 2 # Bowel Movements 1 Exam HEENT pupils are reactive Neck is supple CV is S1-S2 regular rate and rhythm Respiratory bilateral clear GI positive bowel sounds soft nondistended nontender no guarding no rigidity Extremity no edema 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 Medications Current Medications Medications Dose Ordered Sig/Hodan Route Start Time Stop Time Status Last Admin Dose Admin Sodium Chloride 10 ml Q8HR IV 07/14/24 14:00 07/16/24 13:33 10 ML Acetaminophen/ Hydrocodone Bitart 1 tab Q4HP PRN PO 07/14/24 13:15 07/16/24 05:26 1 TAB Ondansetron HCl 4 mg Q4HP PRN IV 07/14/24 13:15 Docusate Sodium 100 mg BIDPRN PRN PO 07/14/24 13:15 07/16/24 00:30 100 MG Acetaminophen 650 mg Q6HP PRN PO 07/14/24 13:15 Lactulose 30 ml Q6HR PO 07/15/24 18:00 07/16/24 09:27 30 ML Polyethylene Glycol 17 gm DAILY PO 07/15/24 18:34 07/16/24 09:27 17 GM Laboratory Results Laboratory Tests 07/15/24 05:53 Urinalysis Test 07/14/24 11:00 Urine Color Yellow (Yellow) Urine Clarity Clear (Clear) Urine pH 6.5 (5.0-9.0) Urine Specific [place] > 1.050 (1.001-1.035) Urine Protein Trace (Negative) H Urine Ketones Negative (Negative) Urine Blood Negative /uL (Negative) Urine Nitrite Negative (Negative) Urine Bilirubin Negative (Negative) Urine Urobilinogen Normal mg/dL (Negative) Urine Leukocyte Esterase Negative /uL (Negative) Urine RBC 1 /hpf (0 - 4) Urine Microscopic WBC < 1 /HPF (0-5) Urine Squamous Epithelial Cells None seen /hpf (<5) Urine Bacteria None seen /hpf (None Seen) Urine Mucus Few (None Seen) Urine Glucose Normal mg/dL (Normal) Assessment/Plan Assessment/Plan 83-year-old female with a known history of constipation on and off for almost a year presented to the hospital with rectal pain, constipation found to have 1. Rectal wall thickening highly suspicious for rectal cancer 2. Constipation with a pencil shaped stools 3. Loss of weight about 10 lb last 6 months -sigmoidoscopy suspected rectal mass , General surgery consultation -bowel regimen. Plan discussed with: Patient My Orders Orders - CHARITO MOLINA MD Procedure Category Date Status Time Communication Order ORDERS 07/15/24 Transmitted 16:40 Date of Service: Jul 16, 2024 Billing Provider: CHARITO MOLINA MD Common Visit Codes: [id number] INP/OBS CARE(MOD) CHARITO MOLINA MD Jul 16, 2024 15:56
[2024-07-17] VITALS (7 sets, daily range): BP systolic 107–118; BP diastolic 65–79; PULSE 66–79; RESP 17–18; TEMP 97.9–98.1; O2SAT 94–99
[2024-07-17 07:20] LABS: Basophils # (auto) 0 10 ^3/uL (0-0.2); Lymphocytes # (auto) 0.9 10 ^3/uL (0.4-5.4); Monocytes # (auto) 0.3 10 ^3/uL (0-1.3); Neutrophils # (auto) 5.4 10 ^3/uL (1.6-8.6); White Blood Cell 6.9 10^3/uL (4.4-10.8)
[2024-07-17 07:23] LABS: Basophils % (auto) 0.6 % (0.0-2.0); Eosinophils # (auto) 0.3 10 ^3/uL (0-0.8); Eosinophils % (auto) 3.7 % (0.0-7.0); Hematocrit 33.4 % (36.0-46.0); Hemoglobin 10.8 g/dL (12.2-16.2); Lymphocytes % (auto) 13.3 % (10.0-50.0); Mean Corpuscular Hemoglobin 26.2 pg (28.0-32.0); Mean Corpuscular Hgb Conc. 32.4 g/dL (32.0-36.0); Mean Corpuscular Volume 80.6 fL (80.0-100.0); Neutrophils % (auto) 77.4 % (37.0-80.0); Nucleated Red Blood Cells % 0.1 %; Platelet Count (auto) 479 10^3/uL (140-450); Red Blood Cells 4.14 10^6/uL (4.0-5.20); Red Cell Distribution Width 15.9 % (11.8-14.3)
[2024-07-17] MEDS: IOHEXOL 300 MG/ML 100ML BOTTLE IJ ONE (12:45)
--- NOTE | 2024-07-17 14:50 | DVHPN2 ---
Subjective Patient is status post sigmoidoscopy, found to have a rectal mass highly friable likely malignant. Changes from previous H/P or p: No Changes Eyes: No Pain, No Vision change, No Conjunctivae inflammation, No Eyelid inflammation, No Other, No Redness ENT: No Ear pain, No Ear discharge, No Nose pain, No Nose discharge, No Nose congestion, No Mouth pain, No Mouth swelling, No Throat pain, No Throat swelling, No Other Cardiovascular: No Chest Pain, No Palpitations, No Orthopnea, No Paroxysmal Noc. Dyspnea, No Edema, No Lt Headedness, No Other Respiratory: No Cough, No Dry, No Shortness of breath, No SOB with excertion, No Wheezing, No Hemoptysis, No Pleuritic Pain, No Sputum, No Other Gastrointestinal: No Nausea, No Vomiting; Abdominal Pain; No Diarrhea; C onstipation; No Melena, No Hematochezia; Other (rectal pain) Genitourinary: No Dysuria, No Frequency, No Incontinence, No Hematuria, No Retention, No Other Musculoskeletal: No other, No neck pain, No shoulder pain, No arm pain, No back pain, No hand pain, No leg pain, No foot pain Skin: No Rash, No Lesions, No Jaundice, No Bruising, No Other Objective Vitals Vital Signs Date Time Temp Pulse Resp B/P (MAP) Pulse Ox O2 Delivery O2 Flow Rate FiO2 07/17/24 08:30 98.1 79 17 115/67 (83) 97 98.1 07/17/24 08:00 Room Air* 0 21 Intake/Output Intake and Output 07/17/24 07:00 Intake Total 450 ml Balance 450 ml Intake Oral 400 ml IV Total 50 ml # Voids 4 # Bowel Movements 1 Exam HEENT pupils are reactive Neck is supple CV is S1-S2 regular rate and rhythm Respiratory bilateral clear GI positive bowel sounds soft nondistended nontender no guarding no rigidity 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 Medications Current Medications Medications Dose Ordered Sig/Hodan Route Start Time Stop Time Status Last Admin Dose Admin Sodium Chloride 10 ml Q8HR IV 07/14/24 14:00 07/17/24 06:07 10 ML Acetaminophen/ Hydrocodone Bitart 1 tab Q4HP PRN PO 07/14/24 13:15 07/16/24 05:26 1 TAB Ondansetron HCl 4 mg Q4HP PRN IV 07/14/24 13:15 Docusate Sodium 100 mg BIDPRN PRN PO 07/14/24 13:15 07/16/24 00:30 100 MG Acetaminophen 650 mg Q6HP PRN PO 07/14/24 13:15 Lactulose 30 ml Q6HR PO 07/15/24 18:00 07/17/24 06:07 30 ML Polyethylene Glycol 17 gm DAILY PO 07/15/24 18:34 07/17/24 10:37 17 GM Laboratory Results Laboratory Tests 07/15/24 05:53 07/17/24 05:26 Urinalysis Test 07/14/24 11:00 Urine Color Yellow (Yellow) Urine Clarity Clear (Clear) Urine pH 6.5 (5.0-9.0) Urine Specific [place] > 1.050 (1.001-1.035) Urine Protein Trace (Negative) H Urine Ketones Negative (Negative) Urine Blood Negative /uL (Negative) Urine Nitrite Negative (Negative) Urine Bilirubin Negative (Negative) Urine Urobilinogen Normal mg/dL (Negative) Urine Leukocyte Esterase Negative /uL (Negative) Urine RBC 1 /hpf (0 - 4) Urine Microscopic WBC < 1 /HPF (0-5) Urine Squamous Epithelial Cells None seen /hpf (<5) Urine Bacteria None seen /hpf (None Seen) Urine Mucus Few (None Seen) Urine Glucose Normal mg/dL (Normal) Assessment/Plan Assessment/Plan 83-year-old female with a known history of constipation on and off for almost a year presented to the hospital with rectal pain, constipation found to have 1. Rectal wall thickening status post sigmoidoscopy showed rectal mass highly suspicious for malignancy 2. Constipation with a pencil shaped stools 3. Loss of weight about 10 lb last 6 months -status post sigmoidoscopy showed rectal mass highly suspicious for cancer-, CE is negative Curbside oncology was consulted who recommended CT chest abdomen and pelvis with and without contrast for staging -surgical consult . All the patient's may need chemoradiation deficit rectal cancer. Plan discussed with: Patient My Orders Orders - CHARITO MOLINA MD Procedure Category Date Status Time * Surgical Consult CONS 07/17/24 Transmitted * Hematology/Oncology CONS 07/17/24 Transmitted Consult 12:26 Ct Chest/Ab/Pl W Con- CT 07/17/24 Taken Iv Only 12:33 Date of Service: Jul 17, 2024 Billing Provider: CHARITO MOLINA MD Common Visit Codes: [id number] INP/OBS CARE(MOD) CHARITO MOLINA MD Jul 17, 2024 14:50
--- NOTE | 2024-07-17 16:07 | DVH ---
Exam: CT CT CHEST/AB/PL W CON- IV ONLY History: rectal malihgnancy work up Comparison Study: None available at time of dictation. Technique: Multidetector CT of the chest, abdomen and pelvis was performed from lower neck to pubic s ymphysis. Intravenous contrast was administered during this examination. Axial, coronal and sagittal multiplanar reformats were performed by the technologist on a separate workstation. Radiation Dose Information: CT Dose: CTDI volume is 5.7 mGy. Dose-length product is 367.59 mGy*cm Findings: Lower neck: Thyroid appears normal Lungs: No infiltrates or effusions. No pulmonary nodules or masses. Heart/Vascular Structures: Appear normal Lymph Nodes: No hilar or mediastinal adenopathy. Pleura: Normal Liver: The liver is normal in size. No focal lesions. Normal hepatic vascular enhancement. Gallbladder and Biliary Tree: Unremarkable Spleen: Unremarkable Pancreas: The pancreas is normal in appearance without focal lesions or abnormal enhancement. Adrenal Glands: Unremarkable Kidneys: Kidneys demonstrate normal symmetric enhancement without focal lesions, calculi or hydroneph rosis. Bladder: Unremarkable Bowel: The stomach is grossly normal in appearance. Small bowel and colon are normal in caliber and d istribution. Thickened irregular wall of the rectum consistent with history of malignancy. The append ix is not visualized; however, no secondary findings of acute appendicitis identified. Ascites: Absent Lymphadenopathy: No mesenteric, retroperitoneal or periportal lymphadenopathy. Abdominal Wall and Mesentery: Unremarkable. Vasculature: The visualized abdominal aorta is normal in size and caliber. Abdominal and pelvic vess els demonstrate normal enhancement. Pelvic Organs: Unremarkable Musculoskeletal: No aggressive focal bony lesions, acute fractures or dislocation. IMPRESSION: 1. 1. Thickened irregular rectal wall consistent with history of malignancy. 2. 2. No pulmonary nodules or masses 3. 3. No findings to suggest hepatic metastasis. 4. 4. No osseous abnormalities. 5. All CT scans at this medical facility are performed using dose modulation techniques as appropriate to a performed exam including the following: Automated exposure control was utilized; adjustment of t he MA and/or KV according to patient size; and use of iterative reconstruction technique.
[2024-07-18] VITALS (7 sets, daily range): BP systolic 101–114; BP diastolic 62–73; PULSE 68–105; RESP 16–18; TEMP 97.4–98.1; O2SAT 96–99
--- NOTE | 2024-07-18 13:06 | DVHINCON2 ---
HISTORY OF PRESENT ILLNESS: The patient is a 54-year-old female being evaluated for abdominal pain. She is in her hospital bed, comfortable, in no acute distress. The patient was admitted through the Emergency Room with a complaint of abdominal pain. About a year ago, she noticed blood in her stool and she did not follow up with the doctor due to financial difficulties. She was beginning prebiotic diet supplementation to improve her bowel function; however, abdominal pain progressively became more difficult and the patient started experiencing constipation. The patient is an occasional alcohol drinker, uses marijuana. The patient has no significant medical history other than the outlined above. She has no known medicinal allergies. She does not smoke, does not use drugs. REVIEW OF SYSTEMS: The patient has no significant contributory findings systems reviewed other than the problems outlined above. PHYSICAL EXAMINATION: GENERAL: Well-developed, well-nourished female, slender. HEENT: Pupils are equal, round, react to light equally. Sclerae nonicteric. Extraocular motion is intact. Uvula midline. Trachea midline. Carotids are full without bruits. Jugular veins are collapsed. HEART: Regular rate and rhythm without murmur or gallop. ABDOMEN: Nondistended, nontender. No CVA tenderness. EXTREMITIES: No peripheral vascular insufficiency. No venous stasis. LABORATORY DATA: The patient's laboratory evaluation revealed a normal white count. H and H is decreased, with a most recent hemoglobin of 10.8 and hematocrit 33.4. The patient has elevated platelet count, with the most recent count being 479. Subsequent evaluation was chemistry, which showed essentially normal panel. The original carcinoembryonic antigen was 1.68 on the 07/14/2024. Another evaluation is pending. Imaging was performed by means of a pelvic abdominal CT scan with IV contrast, showing a large amount of stool, fully distended rectum, with irregular appearing anthony, nonspecific small lymph nodes being noted in the mesorectal fat. There is some mild biliary ductal dilatation. An MRCP was recommended by the radiologist. The patient underwent a sigmoidoscopy by Dr. Dwyer, who reports friable, circumferentially polypoid mass in the rectum approximately 3 cm above the anal verge, causing almost complete obstruction of the rectum. The colonoscope was not passed beyond the tumor. Multiple biopsies were obtained. I have explained to the patient that most likely she has a malignancy in the rectum. Depending on the biopsy reports, we will decide on the next step, either a neoadjuvant chemoradiation versus resection. I explained to the patient if she needs an operation that most likely she will wind up with a permanent colostomy. Questions were answered and I will return to evaluate the patient once the biopsy is available. MD RADHA Olsen/ARACELIS/RASHMI TID: [id number] RECEIPT: [id number]
--- NOTE | 2024-07-18 16:22 | DVHPN2 ---
Subjective Patient is status post sigmoidoscopy, found to have a rectal mass highly friable likely malignant. General surgery has been consulted. Changes from previous H/P or p: No Changes Eyes: No Pain, No Vision change, No Conjunctivae inflammation, No Eyelid inflammation, No Other, No Redness ENT: No Ear pain, No Ear discharge, No Nose pain, No Nose discharge, No Nose congestion, No Mouth pain, No Mouth swelling, No Throat pain, No Throat swelling, No Other Cardiovascular: No Chest Pain, No Palpitations, No Orthopnea, No Paroxysmal Noc. Dyspnea, No Edema, No Lt Headedness, No Other Respiratory: No Cough, No Dry, No Shortness of breath, No SOB with excertion, No Wheezing, No Hemoptysis, No Pleuritic Pain, No Sputum, No Other Gastrointestinal: No Nausea, No Vomiting; Abdominal Pain; No Diarrhea; C onstipation; No Melena, No Hematochezia; Other (rectal pain) Genitourinary: No Dysuria, No Frequency, No Incontinence, No Hematuria, No Retention, No Other Musculoskeletal: No other, No neck pain, No shoulder pain, No arm pain, No back pain, No hand pain, No leg pain, No foot pain Skin: No Rash, No Lesions, No Jaundice, No Bruising, No Other Objective Vitals Vital Signs Date Time Temp Pulse Resp B/P (MAP) Pulse Ox O2 Delivery O2 Flow Rate FiO2 07/18/24 13:00 97.8 77 16 107/62 (77) 99 97.8 07/18/24 08:00 Room Air* 0 21 Intake/Output Intake and Output 07/18/24 07:00 Intake Total 1130 ml Balance 1130 ml Intake Oral 1130 ml # Voids 4 # Bowel Movements 8 Exam HEENT pupils are reactive Neck is supple CV is S1-S2 regular rate and rhythm Respiratory bilateral clear GI positive bowel sounds soft nondistended nontender no guarding no rigidity Extremity no edema 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 Medications Current Medications Medications Dose Ordered Sig/Hodan Route Start Time Stop Time Status Last Admin Dose Admin Sodium Chloride 10 ml Q8HR IV 07/14/24 14:00 07/18/24 14:00 10 ML Acetaminophen/ Hydrocodone Bitart 1 tab Q4HP PRN PO 07/14/24 13:15 07/18/24 12:00 1 TAB Ondansetron HCl 4 mg Q4HP PRN IV 07/14/24 13:15 Docusate Sodium 100 mg BIDPRN PRN PO 07/14/24 13:15 07/16/24 00:30 100 MG Acetaminophen 650 mg Q6HP PRN PO 07/14/24 13:15 Lactulose 30 ml Q6HR PO 07/15/24 18:00 07/18/24 05:33 30 ML Polyethylene Glycol 17 gm DAILY PO 07/15/24 18:34 07/18/24 09:52 17 GM Laboratory Results Laboratory Tests 07/15/24 05:53 07/17/24 05:26 Urinalysis Test 07/14/24 11:00 Urine Color Yellow (Yellow) Urine Clarity Clear (Clear) Urine pH 6.5 (5.0-9.0) Urine Specific [place] > 1.050 (1.001-1.035) Urine Protein Trace (Negative) H Urine Ketones Negative (Negative) Urine Blood Negative /uL (Negative) Urine Nitrite Negative (Negative) Urine Bilirubin Negative (Negative) Urine Urobilinogen Normal mg/dL (Negative) Urine Leukocyte Esterase Negative /uL (Negative) Urine RBC 1 /hpf (0 - 4) Urine Microscopic WBC < 1 /HPF (0-5) Urine Squamous Epithelial Cells None seen /hpf (<5) Urine Bacteria None seen /hpf (None Seen) Urine Mucus Few (None Seen) Urine Glucose Normal mg/dL (Normal) Assessment/Plan Assessment/Plan 83-year-old female with a known history of constipation on and off for almost a year presented to the hospital with rectal pain, constipation found to have 1. Rectal wall thickening status post sigmoidoscopy showed rectal mass with a near-complete obstruction highly suspicious for malignancy 2. Constipation with a pencil shaped stools 3. Loss of weight about 10 lb last 6 months -status post sigmoidoscopy showed rectal mass highly suspicious for cancer-, -CT chest abdomen and pelvis shows no evidence of any metastasis -surgical consult appreciated. -depending upon the biopsy results, if assess sigmoid colon cancer need surgical resection, if it is a rectal cancer then need new adjuvant chemotherapy 1st. -patient's may need diverting colostomy anyway as SARAHI near complete friable mass in the rectum area. -plan of care discussed with the patient who understand and agreeable to plan. Plan discussed with: Patient Date of Service: Jul 18, 2024 Billing Provider: CHARITO MOLINA MD Common Visit Codes: [id number] INP/OBS CARE(MOD) CHARITO MOLINA MD Jul 18, 2024 16:22
[2024-07-18] MEDS: ENOXAPARIN SOD 40 MG/0.4 ML SYRINGE SC SCH (17:05)
[2024-07-19] VITALS (8 sets, daily range): BP systolic 106–125; BP diastolic 69–76; PULSE 69–97; RESP 16–18; TEMP 97.4–97.9; O2SAT 96–97
--- NOTE | 2024-07-19 09:52 | DVHPN2 ---
Subjective The patient is seen and examined at bedside. The patient is worrying about her rectal mass. Reviewed: Care Plan, H&P, Labs, Medications, Previous Orders, Radiology Changes from previous H/P or p: No Changes Eyes: No Pain, No Vision change, No Conjunctivae inflammation, No Eyelid inflammation, No Other, No Redness ENT: No Ear pain, No Ear discharge, No Nose pain, No Nose discharge, No Nose congestion, No Mouth pain, No Mouth swelling, No Throat pain, No Throat swelling, No Other Cardiovascular: No Chest Pain, No Palpitations, No Orthopnea, No Paroxysmal Noc. Dyspnea, No Edema, No Lt Headedness, No Other Respiratory: No Cough, No Dry, No Shortness of breath, No SOB with excertion, No Wheezing, No Hemoptysis, No Pleuritic Pain, No Sputum, No Other Gastrointestinal: No Nausea, No Vomiting; Abdominal Pain; No Diarrhea; C onstipation; No Melena, No Hematochezia; Other (rectal pain) Genitourinary: No Dysuria, No Frequency, No Incontinence, No Hematuria, No Retention, No Other Musculoskeletal: No other, No neck pain, No shoulder pain, No arm pain, No back pain, No hand pain, No leg pain, No foot pain Skin: No Rash, No Lesions, No Jaundice, No Bruising, No Other Objective Vitals Vital Signs Date Time Temp Pulse Resp B/P (MAP) Pulse Ox O2 Delivery O2 Flow Rate FiO2 07/19/24 09:00 97.4 91 16 106/71 (83) 97 97.4 07/18/24 20:00 Room Air* 0 21 Intake/Output Intake and Output 07/19/24 07:00 Intake Total 1040 ml Balance 1040 ml Intake Oral 1040 ml # Voids 4 # Bowel Movements 6 General Appearance: Alert, Oriented X3, Cooperative HEENT: Atraumatic, PERRLA, EOMI, Mucous membr. moist/pink Neck: Supple Lungs: Clear to auscultation, Normal air movement Cardiovascular: Regular rate, Normal S1, Normal S2, No murmurs, Gallops, Rubs Abdomen: Normal bowel sounds, Soft, No tenderness Neuro: Cranial nerves 3-12 NL Psych/Mental Status: Mental status NL Medications Current Medications Medications Dose Ordered Sig/Hodan Route Start Time Stop Time Status Last Admin Dose Admin Sodium Chloride 10 ml Q8HR IV 07/14/24 14:00 07/19/24 06:43 10 ML Acetaminophen/ Hydrocodone Bitart 1 tab Q4HP PRN PO 07/14/24 13:15 07/18/24 12:00 1 TAB Ondansetron HCl 4 mg Q4HP PRN IV 07/14/24 13:15 Docusate Sodium 100 mg BIDPRN PRN PO 07/14/24 13:15 07/16/24 00:30 100 MG Acetaminophen 650 mg Q6HP PRN PO 07/14/24 13:15 Lactulose 30 ml Q6HR PO 07/15/24 18:00 07/19/24 05:33 30 ML Polyethylene Glycol 17 gm DAILY PO 07/15/24 18:34 07/18/24 09:52 17 GM Enoxaparin Sodium 40 mg DAILY SC 07/18/24 16:30 07/18/24 17:05 40 MG Laboratory Results Laboratory Tests 07/15/24 05:53 07/17/24 05:26 Urinalysis Test 07/14/24 11:00 Urine Color Yellow (Yellow) Urine Clarity Clear (Clear) Urine pH 6.5 (5.0-9.0) Urine Specific [place] > 1.050 (1.001-1.035) Urine Protein Trace (Negative) H Urine Ketones Negative (Negative) Urine Blood Negative /uL (Negative) Urine Nitrite Negative (Negative) Urine Bilirubin Negative (Negative) Urine Urobilinogen Normal mg/dL (Negative) Urine Leukocyte Esterase Negative /uL (Negative) Urine RBC 1 /hpf (0 - 4) Urine Microscopic WBC < 1 /HPF (0-5) Urine Squamous Epithelial Cells None seen /hpf (<5) Urine Bacteria None seen /hpf (None Seen) Urine Mucus Few (None Seen) Urine Glucose Normal mg/dL (Normal) Labs and/or images reviewed: Labs reviewed by me Assessment/Plan Assessment/Plan [id number] female with a known history of constipation on and off for almost a year presented to the hospital with rectal pain, constipation found to have 1. Rectal wall thickening status post sigmoidoscopy showed rectal mass with a near-complete obstruction highly suspicious for malignancy 2. Constipation with a pencil shaped stools 3. Loss of weight about 10 lb last 6 months -status post sigmoidoscopy showed rectal mass highly suspicious for cancer-, -CT chest abdomen and pelvis shows no evidence of any metastasis -surgical consult appreciated. -depending upon the biopsy results, she will need surgical resection versus adjuvant chemotherapy 1st. -patient's may need diverting colostomy anyway because the mass almost complete obstruction the rectum area. This medical document was created using an electronic medical record system with [employer] direct computerized dictation system. Although this document has been carefully reviewed, there may still be some phonetic and typographical errors. These areas are purely typographical due to imperfections of the software programs, and do not reflect any compromise in the patient's medical care. Plan discussed with: Patient Date of Service: Jul 19, 2024 Billing Provider: DYLAN CORTÉS MD Common Visit Codes: [id number] INP/OBS CARE(HIGH) DYLAN CORTÉS MD Jul 19, 2024 09:52
[2024-07-19] MEDS: ENSURE CLEAR Apple 8oz Carton PO SCH (18:21)
--- NOTE | 2024-07-19 20:32 | DVHPN2 ---
Progress Note - Dictate Date Seen: Jul 19, 2024 Medical Necessity Reason Pt with a Central, PICC or Fol: No Subjective No new complaints Patient seen at bedside Patient is having multiple bowel movements vital signs Vital Sign Date Time Temp Pulse Resp B/P (MAP) Pulse Ox O2 Delivery O2 Flow Rate FiO2 07/19/24 16:54 97.8 78 16 125/73 (90) 97 97.8 07/19/24 08:00 Room Air* 0 21 Total Intake and Output 07/18/24 07/18/24 07/19/24 15:00 23:00 07:00 Intake Total 440 ml 600 ml Balance 440 ml 600 ml medications Current Medications Medications Dose Ordered Sig/Hodan Route Start Time Stop Time Status Last Admin Dose Admin Sodium Chloride 10 ml Q8HR IV 07/14/24 14:00 07/19/24 17:28 10 ML Acetaminophen/ Hydrocodone Bitart 1 tab Q4HP PRN PO 07/14/24 13:15 07/19/24 10:24 1 TAB Ondansetron HCl 4 mg Q4HP PRN IV 07/14/24 13:15 Docusate Sodium 100 mg BIDPRN PRN PO 07/14/24 13:15 07/16/24 00:30 100 MG Acetaminophen 650 mg Q6HP PRN PO 07/14/24 13:15 Lactulose 30 ml Q6HR PO 07/15/24 18:00 07/19/24 17:28 30 ML Polyethylene Glycol 17 gm DAILY PO 07/15/24 18:34 07/18/24 09:52 17 GM Enoxaparin Sodium 40 mg DAILY SC 07/18/24 16:30 07/18/24 17:05 40 MG Enteral Nutritional Formula 240 ml TIDWM PO 07/19/24 18:00 07/19/24 18:21 240 ML objective HEENT pupils are reactive Neck is supple CV is S1-S2 regular rate and rhythm Respiratory bilateral clear GI positive bowel sounds soft nondistended nontender no guarding no rigidity 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 1. Thickened irregular rectal wall consistent with history of malignancy. 2. 2. No pulmonary nodules or masses Problems(with codes): (1) Anemia (2) Constipation (3) Intractable abdominal pain (4) Rectal mass Prognosis Assessment plan Awaiting final pathology results Appreciate surgical consult Patient is requesting a discharge home as she has to go take care of arrangements for her and She may need Outpatient consultation with Oncology if inpatient consult is not available Patient may likely need chemotherapy and radiation Patient was given my contact information to follow up in my office for any further questions if she gets discharged Dietary Evaluation Review Comments: 1. Diet as tolerated after NPO when medically feasible. 2. If constiaption ontinues d/t rectoal cancer, consider Pivot 1.5@30ml/hr providng 68 g protwin 1080 kcal in 24 hrs supportin pt's estimated needs at 109% protein, 75% energy in kcal Expected Outcomes/Goals: Improved GI health. Plan discussed with: Patient MICHELLE KENNEY MD Jul 19, 2024 20:32
[2024-07-20 01:00] VITALS: BP 98/63; PULSE 63; RESP 14; TEMP 97.7; O2SAT 97
[2024-07-20 05:00] VITALS: BP 104/67; PULSE 80; RESP 14; TEMP 97.3; O2SAT 98
[2024-07-20 08:00] VITALS: PULSE 91; RESP 16; O2SAT 97
[2024-07-20 08:54] VITALS: BP 107/78; PULSE 99; RESP 16; TEMP 97.9; O2SAT 99
--- NOTE | 2024-07-20 10:47 | DVHDS2 ---
Discharge Summary Date of Admission Jul 14, 2024 at 13:15 Date of Discharge: Jul 20, 2024 Admitting Diagnosis 1. Rectal wall thickening 2. Constipation with a pencil shaped stools 3. Loss of weight about 10 lb last 6 months Labs/Diagnostic Data: Laboratory Results Test 07/17/24 05:26 07/15/24 05:53 07/14/24 11:00 White Blood Count 6.9 10^3/uL (4.4-10.8) Red Blood Count 4.14 10^6/uL (4.0-5.20) Hemoglobin 10.8 g/dL (12.2-16.2) Hematocrit 33.4 % (36.0-46.0) Mean Corpuscular Volume 80.6 fL (80.0-100.0) Mean Corpuscular Hemoglobin 26.2 pg (28.0-32.0) Mean Corpuscular Hemoglobin Concent 32.4 g/dL (32.0-36.0) Red Cell Distribution Width 15.9 % (11.8-14.3) Platelet Count 479 10^3/uL (140-450) Mean Platelet Volume 7.1 fL (6.9-10.8) Neutrophils (%) (Auto) 77.4 % (37.0-80.0) Lymphocytes (%) (Auto) 13.3 % (10.0-50.0) Monocytes (%) (Auto) 5.0 % (0.0-12.0) Eosinophils (%) (Auto) 3.7 % (0.0-7.0) Basophils (%) (Auto) 0.6 % (0.0-2.0) Neutrophils # (Auto) 5.4 10 ^3/uL (1.6-8.6) Lymphocytes # (Auto) 0.9 10 ^3/uL (0.4-5.4) Monocytes # (Auto) 0.3 10 ^3/uL (0-1.3) Eosinophils # (Auto) 0.3 10 ^3/uL (0-0.8) Basophils # (Auto) 0 10 ^3/uL (0-0.2) Nucleated Red Blood Cells 0.1 % Carcinoembryonic Antigen 1.40 ng/mL (<=5.0) Sodium Level 141 mmol/L (136-145) Potassium Level 3.7 mmol/L (3.5-5.1) Chloride Level 109 mmol/L (98-107) Carbon Dioxide Level 25 mmol/L (20-31) Anion Gap 7 (5-15) Blood Urea Nitrogen 6 mg/dL (9-23) Creatinine 0.56 mg/dL (0.550-1.02) Glomerular Filtration Rate Calc 108 mL/min (>90) BUN/Creatinine Ratio 10.7 (10.0-20.0) Serum Glucose 92 mg/dL (74-106) Calcium Level 9.1 mg/dL (8.7-10.4) Total Bilirubin 0.4 mg/dL (0.2-1.0) Aspartate Amino Transferase (AST) 12 U/L (13-40) Alanine Aminotransferase (ALT) < 9 U/L (7-40) Alkaline Phosphatase 82 U/L (46-116) Total Protein 6.2 g/dL (5.7-8.2) Albumin 3.8 g/dL (3.2-4.8) Urine Color Yellow (Yellow) Urine Clarity Clear (Clear) Urine pH 6.5 (5.0-9.0) Urine Specific [place] > 1.050 (1.001-1.035) Urine Protein Trace (Negative) Urine Ketones Negative (Negative) Urine Blood Negative /uL (Negative) Urine Nitrite Negative (Negative) Urine Bilirubin Negative (Negative) Urine Urobilinogen Normal mg/dL (Negative) Urine Leukocyte Esterase Negative /uL (Negative) Urine RBC 1 /hpf (0 - 4) Urine Microscopic WBC < 1 /HPF (0-5) Urine Squamous Epithelial Cells None seen /hpf (<5) Urine Bacteria None seen /hpf (None Seen) Urine Mucus Few (None Seen) Urine Glucose Normal mg/dL (Normal) Other Laboratory Tests 07/17/24 05:26 07/15/24 05:53 Brief Hx & Hospital Course: This is a 53 years old female with the no known past medical history come to emergency department because severe abdominal pain. The patient apparently noticed some blood in her stool about a year ago. However she did not see any doctor because of the financial difficulty at that time. In May 2023 she underwent a lot of stress and according to her her bowel is all messed up. She had pencil thin stool. She had diarrhea alternating with constipation. She tried to take probiotic however her problem getting worse. She began to have severe abdominal pain and rectal pain. She also experienced blood in stool in she came to emergency department because she become urine retention and can not move her stool. She was not able to urinate unless she had a bowel movement. The patient was admitted. CT scan abdomen pelvis without contrast showed: There is large amount of stool seen within the colon. The rectum is poorly distended with thickened irregular appearing anthony. Rectal malignancy is not excluded. There are few nonspecific small lymph nodes in the mesorectal fat measuring up to 7 mm.The gallbladder appears within normal limits without evidence of cholelithiasis. There is pancreatic and mild biliary ductal dilatation. GI specialist saw the patient and subsequently patient had a colonoscopy done. The colonoscopy showed: Patient had a large friable circumferential polypoid annular mass in the rectum starting at about 3 cm above the anal verge causing partial obstruction beyond which the colonoscope could not be advanced. Multiple biopsies were obtained and patient tolerated the procedure well. The patient had a CT scan abdomen pelvis and chest showed no metastasis. Surgery was consulted for possible resection in diverting colostomy as the mass nearly obstructing the rectum area. The patient is still waiting for biopsy report however she needs to get home to arrange for her family so she was advised to see Dr. Dwyer, GI specialist and Dr. Nuno per schedule for further management of her mass. Patient verbally understand she needs to compliant and follow up with them. Activity as tolerated. Diet per home diet. Follow up with primary care physician 1-2 weeks. Physical exam: HEENT: Normocephalic atraumatic pupils equal react to light and accommodation. Extraocular muscles intact, conjunctiva pink, oropharynx moist, no thrush, no exudate. Lymphatic: No lymphadenopathy Cardiovascular exam: S1, S2 was heard. No murmurs, rubs, gallops Lung: Clear on auscultation bilaterally, no wheeze, rale, rhonchi. GI: Abdominal soft, nondistended, nontenderness, positive bowel sounds. Extremity: No crepitus, cyanosis, edema. Pedal pulses present bilateral. Full range of motion. Skin: Normal turgor, no rash. Psych: Alert, oriented x3. Neurology: No focal deficits, cranial nerve II to XII grossly intact. Condition at Discharge: Stable Final Diagnosis/Problems List 1. Rectal wall thickening status post sigmoidoscopy showed rectal mass with a near-complete obstruction highly suspicious for malignancy 2. Constipation with a pencil shaped stools 3. Loss of weight about 10 lb last 6 months 4. Patient's may need diverting colostomy anyway because the mass almost complete obstruction the rectum area. Discharge Disposition: Home Discharge Statement: "Patient was advised to return to the ER or call 911 if any headaches, dizziness, shortness of breath, chest pain, abdominal pain, bleeding, fevers, or worsening of medical condition. Patient was counseled about treatment plan, medications, possible side effects, patientverbalized understanding. All questions were answered to the best of my ability. This discharge took greater then 30 minutes in planning, reviewing documentation, counseling the patient, and discussing with other team members." ASSESSMENT ASSESSMENT Assessment Date of Service: Jul 20, 2024 Billing Provider: DYLAN CORTÉS MD Common Visit Codes: [id number] DISCH DAY >30min DYLAN CORTÉS MD Jul 20, 2024 10:47
--- NOTE | 2024-07-20 12:31 | DVHDS2 ---
Discharge Summary Date of Admission Jul 14, 2024 at 13:15 Date of Discharge: Jul 20, 2024 Labs/Diagnostic Data: Laboratory Results Test 07/17/24 05:26 07/15/24 05:53 07/14/24 11:00 White Blood Count 6.9 10^3/uL (4.4-10.8) Red Blood Count 4.14 10^6/uL (4.0-5.20) Hemoglobin 10.8 g/dL (12.2-16.2) Hematocrit 33.4 % (36.0-46.0) Mean Corpuscular Volume 80.6 fL (80.0-100.0) Mean Corpuscular Hemoglobin 26.2 pg (28.0-32.0) Mean Corpuscular Hemoglobin Concent 32.4 g/dL (32.0-36.0) Red Cell Distribution Width 15.9 % (11.8-14.3) Platelet Count 479 10^3/uL (140-450) Mean Platelet Volume 7.1 fL (6.9-10.8) Neutrophils (%) (Auto) 77.4 % (37.0-80.0) Lymphocytes (%) (Auto) 13.3 % (10.0-50.0) Monocytes (%) (Auto) 5.0 % (0.0-12.0) Eosinophils (%) (Auto) 3.7 % (0.0-7.0) Basophils (%) (Auto) 0.6 % (0.0-2.0) Neutrophils # (Auto) 5.4 10 ^3/uL (1.6-8.6) Lymphocytes # (Auto) 0.9 10 ^3/uL (0.4-5.4) Monocytes # (Auto) 0.3 10 ^3/uL (0-1.3) Eosinophils # (Auto) 0.3 10 ^3/uL (0-0.8) Basophils # (Auto) 0 10 ^3/uL (0-0.2) Nucleated Red Blood Cells 0.1 % Carcinoembryonic Antigen 1.40 ng/mL (<=5.0) Sodium Level 141 mmol/L (136-145) Potassium Level 3.7 mmol/L (3.5-5.1) Chloride Level 109 mmol/L (98-107) Carbon Dioxide Level 25 mmol/L (20-31) Anion Gap 7 (5-15) Blood Urea Nitrogen 6 mg/dL (9-23) Creatinine 0.56 mg/dL (0.550-1.02) Glomerular Filtration Rate Calc 108 mL/min (>90) BUN/Creatinine Ratio 10.7 (10.0-20.0) Serum Glucose 92 mg/dL (74-106) Calcium Level 9.1 mg/dL (8.7-10.4) Total Bilirubin 0.4 mg/dL (0.2-1.0) Aspartate Amino Transferase (AST) 12 U/L (13-40) Alanine Aminotransferase (ALT) < 9 U/L (7-40) Alkaline Phosphatase 82 U/L (46-116) Total Protein 6.2 g/dL (5.7-8.2) Albumin 3.8 g/dL (3.2-4.8) Urine Color Yellow (Yellow) Urine Clarity Clear (Clear) Urine pH 6.5 (5.0-9.0) Urine Specific [place] > 1.050 (1.001-1.035) Urine Protein Trace (Negative) Urine Ketones Negative (Negative) Urine Blood Negative /uL (Negative) Urine Nitrite Negative (Negative) Urine Bilirubin Negative (Negative) Urine Urobilinogen Normal mg/dL (Negative) Urine Leukocyte Esterase Negative /uL (Negative) Urine RBC 1 /hpf (0 - 4) Urine Microscopic WBC < 1 /HPF (0-5) Urine Squamous Epithelial Cells None seen /hpf (<5) Urine Bacteria None seen /hpf (None Seen) Urine Mucus Few (None Seen) Urine Glucose Normal mg/dL (Normal) Other Laboratory Tests 07/17/24 05:26 07/15/24 05:53 Final Diagnosis/Problems List Colon mass, possible malignant Discharge Disposition: Home Discharge Instruct/Medications Diet: Regular Activity: No Restrictions, As Tolerated Follow Up/Referral: PCP 1-2 weeks GI specialist per schedule Heme/onc if biopsy of mass is malignant Medications: resume home meds Discharge Statement: "Patient was advised to return to the ER or call 911 if any headaches, dizziness, shortness of breath, chest pain, abdominal pain, bleeding, fevers, or worsening of medical condition. Patient was counseled about treatment plan, medications, possible side effects, patientverbalized understanding. All questions were answered to the best of my ability. This discharge took greater then 30 minutes in planning, reviewing documentation, counseling the patient, and discussing with other team members." ASSESSMENT ASSESSMENT Assessment Colon mass, possible malignant DYLAN CORTÉS MD Jul 20, 2024 12:31
[2024-07-20] MEDS ORDERED: LACT10SO3 PO (12:38)
[2024-07-20 13:00] VITALS: BP 106/67; PULSE 71; RESP 14; TEMP 98; O2SAT 98
--- NOTE | 2024-07-20 19:11 | DVHPN2 ---
Progress Note - Dictate Date Seen: Jul 20, 2024 (Time of visit 2:00 p.m.) Medical Necessity Reason Pt with a Central, PICC or Fol: No Subjective No new complaints Patient seen at bedside Patient would like to be discharged today RECTAL MASS BX : AT LEAST INTRAMUCINOUS ADENOCARCINOMA vital signs Vital Sign Date Time Temp Pulse Resp B/P (MAP) Pulse Ox O2 Delivery O2 Flow Rate FiO2 07/20/24 13:00 98.0 71 14 106/67 (80) 98 98.0 07/20/24 08:00 Room Air* 0 21 Total Intake and Output 07/19/24 07/19/24 07/20/24 14:59 22:59 06:59 Intake Total 840 ml 350 ml Balance 840 ml 350 ml objective HEENT pupils are reactive Neck is supple CV is S1-S2 regular rate and rhythm Respiratory bilateral clear GI positive bowel sounds soft nondistended nontender no guarding no rigidity Extremity no 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 laboratory and microbiology Laboratory Tests 07/17/24 05:26 07/15/24 05:53 Test 07/15/24 05:53 Range/Units Serum Glucose 92 74-106 mg/dL Problems(with codes): (1) Anemia (2) Constipation (3) Rectal mass (4) Marijuana use Prognosis PLAN Patient is requesting a discharge home as she has to go take care of arrangements for her and She will need Outpatient consultation with Oncology if inpatient consult is not available Patient may likely need chemotherapy and radiation and possible surgery that could require an APR Patient was given my contact information to follow up in my office for any further questions after discharge Dietary Evaluation Review Comments: 1. Diet as tolerated after NPO when medically feasible. 2. If constiaption ontinues d/t rectoal cancer, consider Pivot 1.5@30ml/hr providng 68 g protwin 1080 kcal in 24 hrs supportin pt's estimated needs at 109% protein, 75% energy in kcal Expected Outcomes/Goals: Improved GI health. Plan discussed with: Patient MICHELLE KENNEY MD Jul 20, 2024 19:11
--- NOTE | 2024-07-23 11:24 | PEER ---
Peer to Peer Review Time DATE: 07/23/24 TIME: 11:23 Review and Recommendations: Approved for inpatient by MAKENZIE Palm MD Jul 23, 2024 11:24
== END 2024-07-20 14:50 | disposition home or self-care (01) | DRG 240 ==
LOC: ER 06:21 → OVERFLOW 13:15 → CENTRAL 14:54
PROVIDERS: ADMIT Internal Medicine; ATTEND Internal Medicine
PROC: 0DBP8ZX Excision of Rectum, Via Natural or Artificial Opening Endoscopic, Diagnostic (ICD-10-PCS; principal; 2024-07-16 12:50)
DX: C18.9 Malignant neoplasm of colon, unspecified (principal); E43 Unspecified severe protein-calorie malnutrition; D63.0 Anemia in neoplastic disease; K59.00 Constipation, unspecified; K63.9 Disease of intestine, unspecified; R33.9 Retention of urine, unspecified; Z82.49 Family history of ischemic heart disease and other diseases of the circulatory system; Z87.891 Personal history of nicotine dependence
CPT/HCPCS: 36415; 45380; 71260; 74177; 80048; 80053; 81001; 82378; 85025; 99291; G0378; J2250